=== PATIENT | female | born 1985 | race Caucasian/White ===

== ENCOUNTER 2024-09-12 08:45 | Emergency (ER) | payer OTHER, SELFPAY ==
--- NOTE | 2024-09-12 08:50 | ED_ITS ---
HPI - URI/Sore Throat General Chief Complaint: Dental/Oral Stated Complaint: Mouth Problem/Throat feeling Tight Time Seen by Provider: 09/12/24 08:50 Source: patient Mode of arrival: ambulatory Limitations: no limitations History of Present Illness HPI Narrative: Patient is a 38-year-old female who presents with sores on mouth and feeling that her throat is tight for 3 days. Patient states she is still able to eat and drink normally except for rice. Patient states that she drinks rice she gets anxiety that is not going to go down. Patient states she has had thrush in the past in the mouth feels the same but did not have the throat sensations. Patient uses 2 different inhalers. Patient states she has a spacer for 1 but not the other. Patient does report that she rinses her mouth religiously after use. Patient also has dentures on both up and bottom. Related Data Home Medications ?Medication ?Instructions ?Recorded ?Confirmed ?Last Taken ?Type albuterol sulfate 2.5 mg/3 mL mg 09/12/24 Unknown History (0.083 %) solution for nebulization budesonide-formoterol HFA 160 inhalation 09/12/24 Unknown History mcg-4.5 mcg/actuation aerosol inhaler (Breyna) ipratropium bromide 0.02 % 09/12/24 Unknown History solution for inhalation Allergies Allergy/AdvReac Type Severity Reaction Status Date / Time No Known Allergies Allergy Unverified 02/21/14 20:03 Review of Systems Review of Systems: All systems reviewed & are unremarkable except as noted in HPI and below Constitutional: Constitutional: Denies body ache(s), Denies fever(s), Denies h eadache(s), Denies malaise and Denies weakness Eyes: Eyes: Denies loss of vision ENT: Denies otalgia, Denies headache(s), Reports mouth lesions, Denies nasal discharge, Denies sinus pain, Denies sore throat and Reports throat swelling (sensation) Cardiovascular: Cardiovascular: Denies chest pain, Denies irregular heart rhythm and Denies dyspnea Respiratory: Respiratory: Denies dyspnea Gastrointestinal: Gastrointestinal: Denies abdominal pain, Denies melena, Denies hematochezia, Denies diarrhea, Denies nausea and Denies vomiting Musculoskeletal: Musculoskeletal: Denies back pain, Denies myalgias and Denies arthralgias Integumentary/Breasts: Skin/Breast: Denies pruritus and Denies rash Neurologic: Denies headache(s), Denies loss of vision and Denies weakness Psychiatric: Psychiatric: Reports no additional psychiatric complaints PMFSH Comments At time of signature, agree with nursing past medical, surgical, social and family history. There is no relevant family history pertinent to the presenting complaint. Exam Const: General: cooperative, healthy appearing, comfortable, no acute distress and well nourished Nutritional Appearance: well nourished Orientation/consciousness: patient oriented x3 Limitations: no limitations HENMT: Head: normal to inspection, normocephalic and atraumatic Ears: hearing grossly normal bilaterally, external ears normal, TM's normal bilaterally and mastoids normal bilaterally Face/Nose/Sinus: Normal external nose present, normal facial exam and face symmetric Face and sinus: normal facial exam and face symmetric Mouth: Yes Normal oral and palatal mucosa present, Yes lip normal, Yes tongue normal, Yes Normal salivary glands and ducts present, Yes moist mucous membranes, Yes Abnormal oral and palatal mucosa present white patches and Yes tongue abnormal with white coating and with plaques Teeth and gingiva: other (dentures present on top and bottom) Throat: posterior oropharynx normal, tonsils normal and uvula midline Eyes: General: appearance normal, both eyes and all related structures Alignment and Position: alignment normal and position normal Periorbital: periorbital findings normal Eyelids: eyelids normal Pupils: Equal, round and reactive pupils present EOM: EOMs intact bilaterally Neck: Neck: normal visual inspection, full ROM, no lymphadenopathy and supple Chest: Chest palpation & inspection: normal inspection of the chest Resp: Effort & Inspection: normal respiratory effort and able to speak in complete sentences Auscultation: clear to auscultation bilaterally Cardio: Rate: regular rate Rhythm: regular rhythm Heart sounds: S1 normal heart sound present and S2 normal heart sound present GI: Inspection: normal to inspection Skin: General skin exam: normal color and no rashes or lesions noted Neuro: General: patient oriented x3 and moves all extremities Cranial nerves: Yes Equal, round and reactive pupils present Speech: normal speech Gait exam (Neuro): Normal gait present Extrem: General: normal to inspection, full ROM and no edema Psych: Appearance: grossly normal and well kempt Mental Status: mental status grossly normal Speech and movement: Normal speech and movement present Affect: normal affect Attitude: cooperative Thought process: Normal thought process present Course Course Emergency Course: Patient is aware of diagnosis, understands and agrees to treatment plan. Anticipatory guidance given. Patient agrees to follow-up as directed and is aware of reasons to seek care at the emergency department. Portions of this record may have been created with voice recognition software Level of Care: Express Care Visit Vital Signs Vital signs: Reviewed MDM - URI/Sore Throat MDM Narrative Medical decision making narrative: Pt well hydrated appearing, in no respiratory distress, hemodynamically stable. Recommend supportive care. The patient is stable at time of discharge the clinical impression was discussed and the patient was given the opportunity to ask questions, which were addressed as completely as possible given the information available at present. Anticipatory guidance and return to care precautions were discussed and the importance of primary care follow-up was stressed and encouraged. The patient voiced understanding of the plan, indications to return, and the need for follow-up. Patient also able to voice that she will go to the ED if there is any worsening sensation of throat swelling or is not able to tolerate secretion, eating or drinking. Exam findings show no acute concerns or changes Patient is appropriate for outpatient treatment and follow-up. Differential diagnosis considered: Carrillo virus, strep pharyngitis, allergic rhinitis, upper respiratory tract infection, sinusitis, rhinosinusitis, nasopharyngitis. viral pharyngitis, otitis media, otitis externa, otitis effusion, foreign body, cerumen impaction, viral syndrome, and influenza.? Differential Diagnosis Differential diagnosis: Likely other (Thrush) Medical Records Attestation: I reviewed the patient's medical records. Discharge Plan Discharge Clinical Impression: Thrush Patient Disposition: Home, Self-Care Condition: Stable Instructions: Oral Candidiasis (ED) Additional Instructions: Use mouthwash every 6 hours, swish hold mouth and swallow. Allow other medication to dissolve in mouth 3 times a day. Always use spacer and rinse mouth after inhaler use. Ensure you are cleaning dentures regularly. If you have any increased difficulty in swallowing go to the emergency department. Your blood pressure was elevated above 120/80 today at Urgent Care. This puts you above the threshold for follow up visit with a primary care provider. High blood pressure does not usually cause any symptoms, however it may lead to kidney failure, stroke, heart disease just to name a few if untreated . Many people are anxious when seeing a provider or nurse. As a result, you are not diagnosed with hypertension at this time unless your blood pressure is persistently high at two office visits at least one week apart. Some things that can help lower blood pressure are lifestyle modifications, such as light exercise, decreased salt in diet, and weight loss. It is important to follow up with a PCP about this within 1 week. If you are having a hard time finding a physician please call our [facility] liaison at [phone]. Patient Language: Eritrean Prescriptions: New clotrimazole 10 mg mane 10 mg mucous membrane TID 10 Days Qty: 30 0RF nystatin 100,000 unit/mL suspension 4 ml PO QID 10 Days Qty: 160 0RF Rx Instructions: swish, hold in mouth as long as possible and then swallow No Action albuterol sulfate 2.5 mg /3 mL (0.083 %) solution for nebulization ipratropium bromide 0.02 % solution budesonide-formoterol [Breyna] 160-4.5 mcg/actuation HFA aerosol inhaler INHALATION Follow-up/Referrals: Paulette Gagnon DO [Physician] - 3 Days ([facility] care) Stand Alone Forms: Work/School Release IP Time of Disposition: 09:20
[2024-09-12 08:52] VITALS: BP 157/89; PULSE 80; RESP 16; TEMP 37.2; O2SAT 100
--- OUTSIDE RECORDS SUMMARY | 2024-09-12 09:12 | XMS_ITS | Referral Summary ---
Author Organization [facility] Address [address] [place] [address] Care Team Providers Care Sled Maker Name Role Phone Ellen Fierro MD Primary Care Provider [phone] Allergies No known active allergies Medications budesonide (PULMICORT) 0.5 mg/2 mL nebulizer solution Take 2 mL (0.5 mg total) by nebulization 2 (two) times a day. Rinse mouth with water after use to reduce aftertaste and incidence of candidiasis. Do not swallow. 2 mL 2 8 Active budesonide (PULMICORT) 0.5 mg/2 mL nebulizer solution Take 0.5 mg by nebulization 2 (two) times a day. 8 Active ipratropium (ATROVENT) 0.02 % nebulizer solution Take 2.5 mL (0.5 mg total) by nebulization 4 (four) times a day for 10 days. 120 mL 8 Active levalbuterol (XOPENEX) 1.25 mg/0.5 mL nebulizer solution Take 0.5 mL (1.25 mg total) by nebulization every 6 (six) hours as needed for wheezing for up to 10 days. 60 vial 8 Active traMADoL (ULTRAM) 50 mg tablet Take 1 tablet (50 mg total) by mouth every 6 (six) hours as needed for pain 10 tablet 1 Active metoclopramide (REGLAN) 10 mg tablet Take 1 tablet (10 mg total) by mouth 4 (four) times a day as needed (NAUSEA) 10 tablet 1 Active polyethylene glycol (MIRALAX) 17 gram packetIndicatio ns:constipation Take 1 packet (17 g total) by mouth daily as needed for constipation 30 packet 1 Active hydrocortisone 2.5 % lotion Apply topically 2 (two) times a day TO RECTAL AREA NEEDED FOR HEMORRHOIDS 50 mL 1 Active Breo Ellipta 100-25 mcg/dose diskus inhaler 1 puff daily 2 Active ipratropium-alb uteroL (DUO-NEB) 0.5-2.5 mg/3 mL nebulizer solution Inhale 3 mL as needed Active methylPREDNISol one (MEDROL DOSEPACK) 4 mg Dosepack Use as per instructions on package. 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 Patient has had a lot of sick contacts. Will continue with regular breathing treatments. Will check peak flows. Will Xopenex for albuterol due to tachycardia. Continue with IV steroids as patient still diffusely wheezy. Will also order magnesium IV. Will hold off on antibiotics at this time as I suspect her infection is likely viral. Will check respiratory viral panel. However will check a rapid strep due to fever of up to 102 and lymphadenopathy with sore throat. Patient may need antibiotics for strep throat if positive. Sinus tachycardia 07/14/2018 Assessment & Plan (07/14/2018 12:38 AM METALWORKING INSTRUCTOR): Likely secondary to asthma exacerbation, albuterol treatments and a component of anxiety. It is improving at this time. Will continue to monitor. Patient has no chest pain. Mass of right lung 07/14/2018 Assessment & Plan (07/14/2018 12:38 AM METALWORKING INSTRUCTOR): Lymph node versus mass found on CT scan. Patient was advised of these findings with mom at bedside and advised that this would need to be followed up on as an outpatient once her current symptoms have resolved. Pneumonia of right upper lobe due to infectious organism Severe asthma with exacerbation Social History Tobacco Use Types Packs/Day Years Used Date Smoking Tobacco: Never Smokeless Tobacco: Never Tobacco Cessation:Counseling Given: Not Answered Alcohol Use Standard Drinks/Week Comments No 0 (1 standard drink = 0.6 oz pur e alcohol) Personal Safety Answer Date Recorded Getting School Help Needed Not on file 07/04 Comments No Sex and Gender Information Value Date Recorded Sex Assigned at Not on file Legal Sex Female 9:31 AM METALWORKING INSTRUCTOR Gender Identity Not on file Sexual Orientation Not on file Last Filed Vital Signs Vital Sign Reading Time Taken Comments Blood Pressure 140/84 06/27/2022 2:01 PM METALWORKING INSTRUCTOR Pulse 86 01/29/2021 6:20 PM CDT Temperature 37.1 C (98.7 F) 01/29/2021 6:20 PM CDT Respiratory Rate 18 01/29/2021 6:20 PM CDT Oxygen Saturation 98% 01/29/2021 6:20 PM CDT Inhaled Oxygen Concentration - - Weight 52.2 kg (115 lb) 06/27/2022 2:01 PM METALWORKING INSTRUCTOR Height 160 cm (5' 3 ) 06/27/2022 2:01 PM METALWORKING INSTRUCTOR Body Mass Index 20.37 06/27/2022 2:01 PM METALWORKING INSTRUCTOR Plan of Treatment Not on file Procedures Procedure Name Priority Date/Time Associated Diagnosis Comments PAP AND HIGH RISK HPV, REFLEX TO GENOTYPING Routine 06/27/2022 3:02 PM METALWORKING INSTRUCTOR Well woman exam from Last 3 Months or Most Recently Relevant to Health Maintenance Results * Pap and High Risk HPV, reflex to Genotyping (06/27/2022 3:02 PM METALWORKING INSTRUCTOR) Clinical indication Comment [facility] - 01 Comment:NEGATIVE FOR INTRAEP ITHELIAL LESION OR MALIGNANCY. Specimen adequacy: Comment [facility] - 01 Comment:Satisfactory for jasvir luation. No endocervical component is identified. Clinician provided ICD10 Comment [facility] - 01 Comment:Z01.419 Performed by Comment [facility] - 01 Comment:Jacinta Lama Cytobrooke chnologist (ASCP) . . [facility] - 01 Note: Comment [facility] - 01 Comment: The Pap smear is a screening test designed to aid in the detection of premalignant and malignant conditions of the uterine cervix. It is not a diagnostic procedure and should not be used as the sole means of detecting cervical cancer. Both false-positive and false-negative reports do occur. Test methodology Comment [facility] - 01 Comment: This liquid based ThinPrep(R) pap test was screened with the use of an image guided system. HPV Aptima Negative Negative [facility] 02 Comment: This nucleic acid amplification test detects fourteen high-risk HPV types (16,18,31,33,35,39,45,51,52,56,58,59,66,68) without differentiation. HPV Genotype Reflex Comment [facility] - 01 Comment:Criteria not met, HP V Genotype not performed. Thin prep 06/27/2022 3:02 PM METALWORKING INSTRUCTOR 06/28/2022 Narrative [facility] - 07/03/2022 4:10 PM METALWORKING INSTRUCTOR Performed at: 01 - [facility] [id number] Fixed Route Bus Operator: Didi Raza MD, Phone: [phone] Performed at: 02 - [facility] [id number] Fixed Route Bus Operator: Didi Raza MD, Phone: [phone] Specimen Comment: No. of containers..01 ThinPrep Vial Silvana Lezama NP LAB CYTOLOGY ORDERABLES [facility] - 01 [facility] 02 from Last 3 Months or Most Recently Relevant to Health Maintenance Insurance IDPA [facility] Address: [address] [address] [place] [address] Advance Directives For more information, please contact: [phone] * Full Code (Latest Code Status on File) Date Activated Date Inactivated Comments 07/13/2018 4:11 PM 07/14/2018 9:45 PM Care Teams Sled Maker Relationship Specialty Start Date End Date Ellen Fierro MD PCP - General 03/16/18
--- OUTSIDE RECORDS SUMMARY | 2024-09-12 09:12 | XMS_ITS | Encounter Summary ---
Author Organization [facility] Address [address] [place] [address] Phone Care Team Providers Care Facility Coordinator Name Role Phone Ellen Fierro MD Primary Care Provider [phone] Efraín Harper MD Unavailable Gabe Carrizales MD Unavailable Eric Lucas MD Primary Care Provider [phone] Encounter Details Date Type Department Care Team (Late st Contact Info) Description 10/10/2019 Telephone [facility] [address] [place] [address] Richard, [facility] Social History Tobacco Use Types Packs/Day Years Used Date Smoking Tobacco: Former Smokeless Tobacco: Never Alcohol Use Standard Drinks/Week Comments No 0 (1 standard drink = 0.6 oz pur e alcohol) Sexually Active Control Partners Comments Yes None Male Comments No Sex and Gender Information Value Date Recorded Sex Assigned at Not on file Legal Sex Female 9:22 AM PHYSICIST [employer] Gender Identity Not on file Sexual Orientation Not on file documented as of this encounter Miscellaneous Notes * Telephone Encounter - Yulia Cruz RN - 10/11/2019 7:43 AM CDT Care gap message being closed at this time due to COVID 19 scheduling restriction guidelines. * Telephone Encounter - Cait Ramos - 10/10/2019 11:02 AM CDT Care Due: Date Visit Type Department Provider Last Visit: None Found None None Found Next Visit: None Scheduled None None Found Last Test Frequency Reason Performed Due Date Office Visit 6 months... albuterol................ Not Found Overdue Powered by [employer]. Reference number: [id number]. 10/10/2019 11:02:04 AM CDT documented in this encounter Plan of Treatment Not on file documented as of this encounter Visit Diagnoses Not on filedocumented in this encounter Additional Health Concerns Assessment Noted Time PHQ-9 Depression Total Score: 0 10/11/19 17 9:23 AM CDT documented as of this encounter Care Teams Facility Coordinator Relationship Specialty Start Date End Date Ellen Fierro MD PCP - General Family Medicine 10/09/16 09/10/22 Eric Lucas MD [address] [place] [address] PCP - General Family Medicine 09/11/22 Efraín Harper MD [facility] [address] [address] Colon and Rectal Surgery 02/23/21 Gabe Carrizales MD [address] [facility] [place] [address] Consulting Physician Pulmonary Disease 11/22/21 documented as of this encounter
--- OUTSIDE RECORDS SUMMARY | 2024-09-12 09:12 | XMS_ITS | Clinical Summary ---
Author Organization [facility] Address [address] [place] [address] Care Team Providers Care Candles Pourer Name Role Phone Ellen Fierro MD Primary Care Provider [phone] Allergies No known active allergies Medications budesonide [...] 07/14/2018 Assessment & Plan (07/14/2018 12:51 AM LAND SURVEYOR ASSISTANT): Likely secondary to URTI infection. Patient has [...] 07/14/2018 Assessment & Plan (07/14/2018 12:38 AM LAND SURVEYOR ASSISTANT): Likely secondary to asthma exacerbation, albuterol treatments and a component of anxiety. It is improving at this time. Will continue to monitor. Patient has no chest pain. Mass of right lung 07/14/2018 Assessment & Plan (07/14/2018 12:38 AM LAND SURVEYOR ASSISTANT): Lymph node versus mass found on CT scan. Patient was advised of these findings with mom at bedside and advised that this would need to be followed up on as an outpatient once her current symptoms have resolved. Pneumonia of right upper lobe due to infectious organism Severe asthma with exacerbation Surgical History Surgery Date Site/Laterality Comments SECTION DILATION AND CURETTAGE OF UTERUS Medical History Medical History Date Comments Asthma Social History Tobacco Use Types Packs/Day Years [...] on file Legal Sex Female 9:31 AM LAND SURVEYOR ASSISTANT Gender Identity Not on file Sexual Orientation Not on file Obstetrics History Para Term AB IAB SAB Ectopic Multiple Livin g Live Births 3 2 2 0 1 0 1 0 0 2 2 Date Outcome GA Total Labor Labor/2nd/3rd Weight Sex Type Anes PTL Maday A1 A5 Name Clin Term Term SAB Last Filed Vital Signs Vital Sign Reading Time Taken Comments Blood Pressure 140/84 06/27/2022 2:01 PM LAND SURVEYOR ASSISTANT Pulse 86 01/29/2021 6:20 PM CDT Temperature 37.1 C (98.7 F) 01/29/2021 6:20 PM CDT Respiratory Rate 18 01/29/2021 6:20 PM CDT Oxygen Saturation 98% 01/29/2021 6:20 PM CDT Inhaled Oxygen Concentration - - Weight 52.2 kg (115 lb) 06/27/2022 2:01 PM LAND SURVEYOR ASSISTANT Height 160 cm (5' 3 ) 06/27/2022 2:01 PM LAND SURVEYOR ASSISTANT Body Mass Index 20.37 06/27/2022 2:01 PM LAND SURVEYOR ASSISTANT Plan of Treatment Health Maintenance Due Date Last Done Comments Depression Screening 1987 Hepatitis C Screening 1987 Varicella Vaccines (1 of 2 - 13+ 2-dose series) 12/12/2000 Hepatitis B Screening 12/12/2005 Pneumococcal vaccine <65 (1 of 2 - PCV) 12/12/2006 HPV Vaccines (2 - 3-dose SCDM series) 06/06/2019 Cervical Cancer Screening 06/27/2023 06/27/2022 Regular Well Visit/Exam 18-64 06/27/2023 06/27/2022 Covid-19 Vaccine ( season) 2024 08/30/2021, 10/25/2020, 10/03/2020 Influenza Vaccine (#1) 2024 , 04/18/2019, 07/22/2018 DTaP/Tdap/Td Vaccine (2 - Td or Tdap) 10/10/2026 Procedures Procedure Name Priority Date/Time Associated Diagnosis Comments PAP AND HIGH RISK HPV, REFLEX TO GENOTYPING Routine 06/27/2022 3:02 PM LAND SURVEYOR ASSISTANT Well woman exam from Last 3 Months or Most Recently Relevant to Health Maintenance Results * Pap and High Risk HPV, reflex to Genotyping (06/27/2022 3:02 PM LAND SURVEYOR ASSISTANT) Clinical indication Comment [facility] - 01 Comment:NEGATIVE FOR INTRAEP ITHELIAL LESION OR MALIGNANCY. Specimen adequacy: Comment [facility] - 01 Comment:Satisfactory for jasvir luation. No endocervical component is identified. Clinician provided ICD10 Comment [facility] - 01 Comment:Z01.419 Performed by Comment [facility] - 01 Comment:Jacinta Lama, Cytote chnologist (ASCP) . . [facility] - 01 [...] not performed. Thin prep 06/27/2022 3:02 PM LAND SURVEYOR ASSISTANT 06/28/2022 Narrative [facility] - 07/03/2022 4:10 PM LAND SURVEYOR ASSISTANT Performed at: 01 - [facility] [place] [address] [place], [place] [id number] [employer]: Didi Raza MD, Phone: [phone] Performed at: 02 - [facility] [place] [address] [place], [place] [id number] [employer]: Didi Raza MD, Phone: [phone] Specimen Comment: No. of containers..01 ThinPrep Vial Silvana Lezama NP LAB CYTOLOGY ORDERABLES Final Re sult [facility] - 01 [facility] 02 from Last 3 Months or Most Recently Relevant to Health Maintenance Insurance IDPA [facility] Advance Directives For more information, please contact: [phone] * Full Code (Latest Code Status on File) Date Activated Date Inactivated Comments 07/13/2018 4:11 PM 07/14/2018 9:45 PM Care Teams Candles Pourer Relationship Specialty Start Date End Date Ellen Fierro MD PCP - General 03/16/18
--- OUTSIDE RECORDS SUMMARY | 2024-09-12 09:12 | XMS_ITS | Clinical Summary ---
Author Organization [facility] Address [address] [address] Phone Care Team Providers Care Lead Systems Architect Name Role Phone Efraín Harper MD Unavailable Gabe Carrizales MD Unavailable Eric Lucas MD Primary Care Provider [phone] Allergies No known active allergies Medications 08/11 1-20 MG-MCG Tablet TAKE 1 TABLET BY MOUTH ONCE DAILY 1 Active Albuterol Sulfate 2.5 MG/0.5ML Nebulizer SolnIndications :Cough variant asthma 0.5 mL by Nebulization route 4 times daily as needed for Wheezing or Shortness of Breath. 20 mL 3 3 Active valACYclovir (VALTREX) 1 GM Tablet TAKE 2 TABLETS BY MOUTH EVERY 12 HOURS FOR 1 DAY FOR EPISODIC TREATMENT 3 Active budesonide-form oterol fumarate (SYMBICORT) 160-4.5 MCG/ACT Aerosol take 2 Puffs by inhalation 2 times daily. 10.2 g 3 4 Active Additional Information Patient not taking.Reported on 02/20/2024 ipratropium (ATROVENT) 0.02 % Solution 4 Active ipratropium (ATROVENT) 0.02 % Solution 2.5 mL by Nebulization route every 6 hours. 3 mL 6 4 Active budesonide-form oterol fumarate (Breyna) 160-4.5 MCG/ACT Aerosol take 2 Puffs by inhalation 2 times daily. 1 g 6 4 Active albuterol 108 (90 Base) MCG/ACT Aerosol Solution INHALE 2 PUFFS BY MOUTH EVERY 4 HOURS NEEDED FOR WHEEZING 9 g 5 Active Active Problems Problem Noted Date Diagnosed Date Strangulated grade 4 internal hemorrhoid 021 Sinus tachycardia 07/14/2018 Overview (07/22/2018): Last Assessment & Plan: Likely secondary to asthma exacerbation, albuterol treatments and a component of anxiety. It is improving at this time. Will continue to monitor. Patient has no chest pain. 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 Anemia 03/23/2017 Menorrhagia with irregular cycle 03/23/2017 Cough variant asthma 10/10/2016 Resolved Problems Problem Noted Date Diagnosed Date Resolved Date Pneumonia of right upper lob e due to infectious organism 07/22/2018 03/26/2019 Encounters Date Type Department Care Team Description 08/07/2024 Refill [facility] - Pulmonology & Sleep Medicine - [place] [address] [place] [address] Gabe Carrizales MD Medication Refill from Last 3 Months Immunizations Immunization Administration Dates Next Due Covid-19, Mrna, Lnp-s, Pf, 30 Mcg/0.3 Ml Dose (P cecezer) 10/25/2020,10/03/2020 Human Papillomavirus Vaccine (HPV), quadrivalent 05/09/2019 Influenza Vaccine greater than 3 yrs 04/18/2019 Influenza Vaccine, Quadrivalent, PF 06/04/2021,1 PUR TDAP 7+ YRS IM 10/10/2016 TDAP Vaccine 10/10/2016 Family History Medical History Relation Name Comments Kidney Disease Father Liver Disease Father No Known Problems Half-Brother 1 No Known Problems Half-Brother 2 No Known Problems Half-Sister 1 No Known Problems Half-Sister 2 No Known Problems Half-Sister 3 Hypertension Mother Sridevi No Known Problems Son 1 No Known Problems Son 2 Relation Name Status Comments Father (Age 52) septic laura ck Half-Brother 1 Alive Half-Brother 2 Alive Half-Sister 1 Alive Half-Sister 2 Alive Half-Sister 3 Alive Mother Sridevi Alive Son 1 Alive Son 2 Alive Social History Tobacco Use Types Packs/Day Years Used Date Smoking Tobacco: Former Cigarettes 0.5 1 Smokeless Tobacco: Never Tobacco Cessation:Counseling Given: Not Answered Comments:smoked one year when she was 20 Alcohol Use Standard Drinks/Week Comments Not Currently 0 (1 standard drink = 0.6 oz pur e alcohol) Once a month or less. Education Answer Date Recorded What is the highest level of school you have completed or the highest degree you have received? GED or equivalent 04/2021 Sexually Active Control Partners Comments Yes Male Condom, Natural Family Planning, Oral Contraceptive Male Comments No Sex and Gender Information Value Date Recorded Sex Assigned at Not on file Legal Sex Female 9:22 AM [employer] Gender Identity Not on file Sexual Orientation Not on file Last Filed Vital Signs Vital Sign Reading Time Taken Comments Blood Pressure 126/84 02/20/2024 9:54 AM CDT Pulse 73 02/20/2024 9:54 AM CDT Temperature 38.2 C (100.8 F) 02/20/2024 9:54 AM CDT Respiratory Rate 18 02/20/2024 9:54 AM CDT Oxygen Saturation 100% 02/20/2024 9:54 AM CDT Inhaled Oxygen Concentration - - Weight 66.2 kg (146 lb) 12/27/2023 1:10 PM CDT Height 160 cm (5' 3 ) 12/27/2023 1:10 PM CDT Body Mass Index 25.86 12/27/2023 1:10 PM CDT Plan of Treatment Health Maintenance Due Date Last Done Comments Hepatitis C Virus (HCV) Screening 1987 Hepatitis B Immunization (1 of 3 - 19+ 3-dose series) 12/12/2006 Pneumococcal Immunization Combined (1 of 2 - PCV) 12/12/2006 Influenza Immunization (#1) 03/23/202405/23, 04/18/2019, 07/22/2018 SARS-COV-2 Immunization ( season) 2024 08/30/2021, 10/25/2020, 10/03/2020 Pap Smear 07/17/2025 07/17/2022 Td Immunization Every 10 Yea rs (Adults With 1 Tdap) 10/10/2026 10/10/2016, 10/10/2016 Cervical Cancer Screening (CCS) 07/17/2027 HPV/Cotest 07/17/2027 07/17/2022 Respiratory Syncytial Virus (RSV) Immunization (Adult) (1 - 1-dose 75+ series) 12/12/2062 Meningococcal Immunization (ACWY) Aged Out No longer eligible b ased on patient's age to complete this topic Rotavirus Immunization Aged Out No lo nger eligible based on patient's age to complete this topic Insurance [employer] Care Teams Lead Systems Architect Relationship Specialty Start Date End Date Eric Lucas MD [address] [place] [address] PCP - General Family Medicine 09/11/22 Efraín Harper MD [address] [address] Colon and Rectal Surgery 02/23/21 Gabe Carrizales MD [address] [place] [id number] Consulting Physician Pulmonary Disease 11/22/21
== END 2024-09-12 09:26 | disposition home or self-care (01) ==
PROVIDERS: Emergency Provider Nurse Practitioner Family
DX: B37.9 Candidiasis, unspecified (principal)
CPT/HCPCS: 99203; G0463